=== PATIENT | female | born 2000 | race Caucasian/White ===

== ENCOUNTER 2021-11-01 19:30 | Inpatient (IN) | payer OTHER ==
[2021-11-01 20:25] VITALS: BMI 21.8
[2021-11-01] MEDS: DEXTROSE 5%-LACTATED RINGERS 1,000 ML IV SCH (21:10)
[2021-11-01 21:36] LABS: BASO % 0.2 % (0-2.0); EOS % 0.9 % (0-4.5); HEMATOCRIT 31.5 % (32.4-45.2); HEMOGLOBIN 10.7 GM/dL (10.7-15.3); LYMPH % 21.3 % (8-40); MCH 26.3 pg (25.7-33.7); MCHC 33.9 g/dl (32.0-36.0); MEAN CELL VOLUME 77.5 fl (80-96); MEAN PLT VOLUME 10.4 fl (7.5-11.1); MONO % 6.8 % (3.8-10.2); NEUT % 70.8 % (42.8-82.8); PLATELET COUNT 173 10^3/uL (134-434); RBC 4.06 M/mm3 (3.60-5.2); RDW 14.3 % (11.6-15.6); WHITE BLOOD COUNT 7.6 K/mm3 (4.0-10.0)
[2021-11-01 21:47] LABS: INR 0.97 (0.83-1.09); PROTHROMBIN TIME (PATIENT) 11.2 SEC (9.7-13.0)
[2021-11-01 21:50] LABS: ACTIVATED PTT 31.1 SECONDS (25.2-36.5)
[2021-11-01 22:15] LABS: CALCIUM 8.2 mg/dL (8.5-10.1)
[2021-11-01 22:16] LABS: BLOOD UREA NITROGEN 5.7 mg/dL (7-18)
[2021-11-01 22:19] LABS: CREATININE 0.4 mg/dL (0.55-1.3)
[2021-11-01] MEDS: MISOPROSTOL 100 MCG TABLET PV SCH (22:45)
[2021-11-02] MEDS: MISOPROSTOL 100 MCG TABLET PV SCH ×2 (08:34→09:45)
[2021-11-02] MEDS: DEXTROSE 5%-LACTATED RINGERS 1,000 ML IV SCH ×2 (11:40→19:10)
[2021-11-02] MEDS ORDERED: OXYTOCIN 30 UNITS in 0.9% NS 30 UNIT/500 ML INFUS.BAG IVPB SCH (13:45)
[2021-11-02] MEDS ORDERED: OXYTOCIN 20 UNITS in 0.9% NS 20 UNIT/1,000 ML INFUS.BAG IV ONE (19:50)
[2021-11-02] MEDS ORDERED: LIDOCAINE HCL 1% PRESERVATIVE FREE - 30ML VIAL ONE (19:50)
[2021-11-02] MEDS ORDERED: WITCH HAZEL 50% (TUCKS) 40 PAD/JAR PAD TP PRN (20:29)
[2021-11-02] MEDS ORDERED: ACETAMINOPHEN 325 MG TABLET (FP) PO PRN (20:29)
[2021-11-02] MEDS ORDERED: BENZOCAINE 28 GM HEMORRHOIDAL OINTMENT TP PRN (20:29)
[2021-11-02] MEDS ORDERED: IBUPROFEN 600 MG TABLET (FP) PO PRN (20:29)
[2021-11-02] MEDS ORDERED: BENZOCAINE 20% 57 GM BOTTLE TP PRN (20:29)
[2021-11-02] MEDS ORDERED: OXYTOCIN 20 UNITS in 0.9% NS 20 UNIT/1,000 ML INFUS.BAG IV SCH (20:30)
[2021-11-02 20:58] LABS: CORD HCO3 19.2 mmHg (20-29); CORD PCO2 34.2 mmHg (30-78); CORD pH 7.368 (7.14-7.44)
[2021-11-02 21:00] LABS: CORD BASE EXCESS -6.6 mmol/L (0-2); CORD HCO3 21.6 mmHg (20-29); CORD PCO2 53.3 mmHg (30-78); CORD pH 7.225 (7.14-7.44)
[2021-11-03 00:17] LABS: SYPHILIS W/ RPR CONF NON-REACTIVE (NONREACTIVE)
[2021-11-03 00:46] LABS: HIV INTERPRETATION NEGATIVE (NEGATIVE)
[2021-11-03 07:09] LABS: RUBELLA ANTIBODY,IGM <20.0 AU/mL (0.0-19.9)
[2021-11-03 08:37] LABS: BASO % 0.2 % (0-2.0); EOS % 0.1 % (0-4.5); HEMATOCRIT 33.4 % (32.4-45.2); LYMPH % 14.1 % (8-40); MCH 25.4 pg (25.7-33.7); MCHC 32.8 g/dl (32.0-36.0); MEAN CELL VOLUME 77.4 fl (80-96); MEAN PLT VOLUME 10.6 fl (7.5-11.1); MONO % 6.4 % (3.8-10.2); NEUT % 79.2 % (42.8-82.8); PLATELET COUNT 170 10^3/uL (134-434); RBC 4.31 M/mm3 (3.60-5.2); RDW 14.3 % (11.6-15.6); WHITE BLOOD COUNT 13.1 K/mm3 (4.0-10.0)
[2021-11-03] MEDS: PRENATAL VITAMINS W/ FOLIC ACID TABLET (FP) PO SCH (09:08)
[2021-11-03] MEDS: FERROUS SO4 325 MG TABLET (FP) PO SCH ×3 (09:08→17:16)
[2021-11-03] MEDS ORDERED: SENNOSIDES/DOCUSATE COMBO (SENNA PLUS) TABLET (UD) PO PRN (22:00)
[2021-11-04] MEDS: FERROUS SO4 325 MG TABLET (FP) PO SCH ×2 (10:51→13:12)
[2021-11-04] MEDS: PRENATAL VITAMINS W/ FOLIC ACID TABLET (FP) PO SCH (10:51)
[2021-11-04 11:08] VITALS: BP 99/61; PULSE 84; TEMP 98.4
== END 2021-11-04 16:30 | disposition home or self-care (01) | DRG 560 ==
LOC: JLDR 19:30 → J3W 11-02 21:54
PROVIDERS: ADMIT Obstetrics & Gynecology Maternal & Fetal Medicine; ATTEND Obstetrics & Gynecology Maternal & Fetal Medicine
PROC: 10E0XZZ Delivery of Products of Conception, External Approach (ICD-10-PCS; principal; 2021-11-02)
DX: O80 Encounter for full-term uncomplicated delivery (principal); Z3A.39 39 weeks gestation of pregnancy; Z87.59 Personal history of other complications of pregnancy, childbirth and the puerperium; Z37.0 Single live birth
CPT/HCPCS: 36415; 36600; 59409; 80048; 82803; 85025; 85610; 85730; 86762; 86780; 86850; 86900; 86901; 87340; 87389; C9803-CS; U0003; U0005